=== PATIENT | male | born 1980 | race Caucasian/White ===

== ENCOUNTER 2020-09-09 00:38 | Inpatient (IN) | payer BC, MEDICAID, OTHER ==
[2020-09-09 02:07] LABS: Appearance,Urine Clear (Clear); Bilirubin,Urine Negative (Negative); Blood,Urine Negative (Negative); Color,Urine Colorless; Glucose,Urine (UA) Negative (Negative); Ketones,Urine Negative (Negative); Leukocyte Esterase,Urine Negative (Negative); Nitrite,Urine Negative (Negative); PH, Urine 5.5 (5.0-8.0); Protein,Urine Negative (Negative); Urobilinogen,Urine <2.0 mg/dL (<2.0)
[2020-09-09 02:10] LABS: Specific Gravity,Urine 1.002 (1.001-1.035)
[2020-09-09 02:11] LABS: Amphetamine Screen,Urine Detected (NotDetected); Barbiturate Screen,Urine Not Detected (NotDetected); Benzodiazepines Screen,Urine Not Detected (NotDetected); Cocaine Screen,Urine Not Detected (NotDetected); Methadone Screen, Urine Not Detected (NotDetected); Opiate Screen,Urine Not Detected (NotDetected); Oxycodone Screen, Urine Not Detected (NotDetected); Phencyclidine Screen,Urine Not Detected (NotDetected); Tricyclic Antidepressant,Urine Not Detected (NotDetected); Urn Cannabinoid Scrn Not Detected (NotDetected)
[2020-09-09] MEDS ORDERED: HALOPERIDOL LACTATE 5 MG/ML 1 ML VIAL IM PRN ×2 (04:43→11:36)
[2020-09-09] MEDS ORDERED: LORazepam 2 MG/ML INJ IM STA (04:44)
[2020-09-09] MEDS ORDERED: diphenhydrAMINE 50 MG/ML 1 ML VIAL IM STA (04:44)
[2020-09-09 05:18] LABS: Basophils # (A) 0.1 k/uL (0-0.2); Basophils % (A) 1 %; Eosinophils # (A) 0.2 k/uL (0-0.7); Eosinophils % (A) 2 %; HCT 51.6 % (39.0-53.0); HGB 18.2 gm/dL (13.0-17.5); Lymphocytes # (A) 4.8 k/uL (1.0-4.8); Lymphocytes % (A) 48 %; MCH 31.2 pg (25.0-35.0); MCHC 35.2 g/dL (31.0-37.0); MCV 88.6 fL (80.0-100.0); Mean Platelet Volume 6.5; Monocytes # (A) 0.5 k/uL (0-1.0); Monocytes % (A) 5 %; Neutrophils # (A) 4.1 k/uL (1.3-7.7); Neutrophils % (A) 41 %; Platelet Count 292 k/uL (150-450); RBC 5.82 m/uL (4.30-5.90); RDW 12.3 % (11.5-15.5); WBC 9.9 k/uL (3.8-10.6)
[2020-09-09 05:39] LABS: Albumin 5.4 g/dL (3.5-5.0); Calcium 9.2 mg/dL (8.4-10.2); Potassium 4.3 mmol/L (3.5-5.1); Total Bilirubin 1.3 mg/dL (0.2-1.3); Total Protein 8.2 g/dL (6.3-8.2)
--- NOTE | 2020-09-09 05:55 | ED ---
Psych HPI - General Chief Complaint: Psychiatric Symptoms Stated Complaint: Mental health Source: patient, police Mode of arrival: ambulatory - History of Present Illness Initial Comments: Patient is a 39-year-old male with past medical history of hypertension presents emergency Department with police. The patient reports that he was having a bad day. States that he did pull his mother off life support one year ago on this day. Also was told that his son who has muscular dystrophy is no longer res ponding to his home medications and that doctors have told him that his son will pass soon. Because the patient was having a bad day he states that he did drink alcohol. He called his ex-girlfriend for which she made comments that he was not doing well. She went over to the house to find that the patient was cleaning his guns. She got extremely concerned and therefore called police. They did arrive and requested take the patient in for evaluation. Patient does report a history of depression, currently does not take any medications. Patient denies to me that he is suicidal but depressed. Denies any drug use. No other alleviating, precipitating or modifying factors - Related Data Home Medications Medication Instructions Recorded Confirmed lisinopriL 10 mg PO DAILY 09/09/20 09/09/20 Allergies Allergy/AdvReac Type Severity Reaction Status Date / Time No Known Allergies Allergy Verified 09/09/20 00:49 Review of Systems ROS Statement: Those systems with pertinent positive or pertinent negative responses have been documented in the HPI. ROS Other: All systems not noted in ROS Statement are negative. Past Medical History Past Medical History: Hypertension History of Any Multi-Drug Resistant Organisms: None Reported Past Surgical History: No Surgical Hx Reported Past Psychological History: ADD/ADHD, Anxiety Smoking Status: Current every day smoker Past Alcohol Use History: Daily Past Drug Use History: None Reported General Exam Limitations: no limitations General appearance: alert, in no apparent distress Head exam: Present: atraumatic, normocephalic, normal inspection Eye exam: Present: normal appearance, PERRL, EOMI. Absent: scleral icterus, conjunctival injection, periorbital swelling ENT exam: Present: normal exam, mucous membranes moist Neck exam: Present: normal inspection. Absent: tenderness, meningismus, lymphadenopathy Respiratory exam: Present: normal lung sounds bilaterally. Absent: respiratory distress, wheezes, rales, rhonchi, stridor Cardiovascular Exam: Present: regular rate, normal rhythm, normal heart sounds. Absent: systolic murmur, diastolic murmur, rubs, gallop, clicks GI/Abdominal exam: Present: soft, normal bowel sounds. Absent: distended, tenderness, guarding, rebound, rigid Extremities exam: Present: normal inspection, full ROM, normal capillary refill. Absent: tenderness, pedal edema, joint swelling, calf tenderness Back exam: Present: normal inspection Neurological exam: Present: alert, oriented X3, CN II-XII intact Psychiatric exam: Present: depressed Skin exam: Present: warm, dry, intact, normal color. Absent: rash Course Vital Signs 09/09/20 00:46 Temperature 97.9 F Pulse Rate 111 H Respiratory 20 Rate Blood Pressure 169/79 O2 Sat by Pulse 99 Oximetry Medical Decision Making - Medical Decision Making Upon arrival patient is placed in room 15. Thorough history and physical exam was performed. Patient is evaluated by EPS at 3 AM when he is sober. The case was discussed with the psychiatrist to recommend admission for the patient. The patient is informed of this. He is currently awaiting outpatient placement in a psychiatric facility - Lab Data Result diagrams: 09/09/20 04:57 Lab Results 09/09/20 09/09/20 09/09/20 Range/Units 01:50 04:57 04:57 WBC 9.9 (3.8-10.6) k/uL RBC 5.82 (4.30-5.90) m/uL Hgb 18.2 H (13.0-17.5) gm/dL Hct 51.6 (39.0-53.0) % MCV 88.6 (80.0-100.0) fL MCH 31.2 (25.0-35.0) pg MCHC 35.2 (31.0-37.0) g/dL RDW 12.3 (11.5-15.5) % Plt Count 292 (150-450) k/uL MPV 6.5 Neutrophils % 41 % Lymphocytes % 48 % Monocytes % 5 % Eosinophils % 2 % Basophils % 1 % Neutrophils # 4.1 (1.3-7.7) k/uL Lymphocytes # 4.8 (1.0-4.8) k/uL Monocytes # 0.5 (0-1.0) k/uL Eosinophils # 0.2 (0-0.7) k/uL Basophils # 0.1 (0-0.2) k/uL Urine Color Colorless Urine Appearance Clear (Clear) Urine pH 5.5 (5.0-8.0) Ur Specific [place] 1.002 (1.001-1.035) Urine Protein Negative (Negative) Urine Glucose (UA) Negative (Negative) Urine Ketones Negative (Negative) Urine Blood Negative (Negative) Urine Nitrite Negative (Negative) Urine Bilirubin Negative (Negative) Urine Urobilinogen <2.0 (<2.0) mg/dL Ur Leukocyte Esterase Negative (Negative) Urine Opiates Screen Not Detected (NotDetected) Ur Oxycodone Screen Not Detected (NotDetected) Urine Methadone Screen Not Detected (NotDetected) Ur Propoxyphene Screen Not Detected (NotDetected) Ur Barbiturates Screen Not Detected (NotDetected) U Tricyclic Antidepress Not Detected (NotDetected) Ur Phencyclidine Scrn Not Detected (NotDetected) Ur Amphetamines Screen Detected H (NotDetected) U Methamphetamines Scrn Not Detected (NotDetected) U Benzodiazepines Scrn Not Detected (NotDetected) Urine Cocaine Screen Not Detected (NotDetected) U Marijuana (THC) Screen Not Detected (NotDetected) Coronavirus (PCR) Not Detected (Not Detectd) Disposition Referrals: Santo Garza MD [Primary Care Provider] - 1-2 days
[2020-09-09 08:14] VITALS: RESP 18
[2020-09-09] MEDS ORDERED: lisinopriL 10 MG TAB PO SCH (09:00)
[2020-09-09] MEDS ORDERED: MAG HYDROX/AL HYDROX/SIMETH 30 ML CUP PO PRN (10:16)
[2020-09-09] MEDS ORDERED: LORazepam 1 MG TAB PO PRN ×2 (10:16→12:14)
[2020-09-09] MEDS ORDERED: MAGNESIUM HYDROXIDE 2,400 MG/10 ML CUP PO PRN (10:16)
[2020-09-09] MEDS ORDERED: ACETAMINOPHEN TAB 325 MG TAB PO PRN (10:16)
[2020-09-09 11:02] VITALS: TEMP 98.7
[2020-09-09] MEDS ORDERED: haloperidoL 5 MG TAB PO PRN (11:36)
[2020-09-09] MEDS ORDERED: diphenhydrAMINE 25 MG CAP PO PRN (11:37)
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
[2020-09-09] MEDS: THIAMINE 100 MG TAB PO SCH (12:06)
[2020-09-09] MEDS: MULTIVITAMINS, THERA 1 EACH TAB PO SCH (12:06)
[2020-09-09] MEDS: SERTRALINE 50 MG TAB PO SCH (12:06)
[2020-09-09] MEDS: NICOTINE 14MG/24HR PATCH TRANSDERM SCH (12:07)
[2020-09-09] MEDS ORDERED: LORazepam 2 MG/ML INJ IM PRN (12:12)
--- NOTE | 2020-09-09 15:06 | P.HPIM ---
History of Present Illness H&P Date: 09/09/20 History of presenting illness: Patient is a 39-year-old male with a past medical history of ADHD, hypertension, anxiety, and depression. Patient currently admitted to inpatient mental health unit for concerns of increased depression and we have been consulted by primary psychiatric team for continued medical managment. Patient reports that he has been struggling with life stressors, depression, and anxiety and has been overly stressed out lately. He denies having any suicidal or homicidal ideations, visual/tactile/auditory hallucinations, or experiencing any racing thoughts or emotions. Patient reports that he takes lisinopril for his diastolic hypertension. He denies having any headache, lightheadedness, dizziness, chest pain, palpitations, shortness of breath, or dyspnea with exertion. Patient reports chewing tobacco and drinking approximately 2-3 beers 1-2 times per week. He denies any drug use. Review of systems: Pertinent positives and negatives as discussed in HPI, a complete review of systems was performed and all other systems are negative. Physical exam: General: non toxic, no distress, appears at stated age Derm: warm, dry Head: atraumatic, normocephalic, symmetric Eyes: EOMI, no lid lag, anicteric sclera Mouth: no lip lesion, mucus membranes moist Cardiovascular: S1S2 normal with regular rate and tachycardic rhythm at 102 bpm via apical heart, no murmur, gallop, or rub. Positive posterior tibial pulses bilaterally. Lungs: Respirations even, regular, and unlabored on room air. Lungs CTA bilaterally with no noted wheezes, rales, or rhonchi present. No accessory muscle usage. Abdominal: Soft, nontender to palpation, no guarding, no appreciable organomegaly Ext: No gross muscle atrophy, no edema, no contractures Neuro: CN II-XI grossly intact, no focal neuro deficits Psych: Alert, oriented, appropriate affect Assessment and Plan of Care: Hypertension -Monitor vital signs and Continue daily medication management with lisinopril 10 mg daily. ADHD -Recommend holding Adderall, patient reports being on Adderall for greater than 2 years and reports recent diagnosis of hypertension. Hypertension possibly caused from daily use of Adderall. Depression and anxiety -Treatment per primary psychiatric team. Thank you for allowing us to participate in the care of this pleasant patient. Do not hesitate to contact us with questions. We will follow along on an as- needed basis. Someone can be reached from the [facility] [place] hospitalist shayna loza all hours of the day at [phone] or via [employer]. Past Medical History Past Medical History: Hypertension History of Any Multi-Drug Resistant Organisms: None Reported Past Surgical History: No Surgical Hx Reported, Orthopedic Surgery Additional Past Surgical History / Comment(s): R ankle pin Past Anesthesia/Blood Transfusion Reactions: No Reported Reaction Past Psychological History: ADD/ADHD, Anxiety Smoking Status: Never smoker Past Alcohol Use History: Daily Past Drug Use History: None Reported Medications and Allergies Home Medications Medication Instructions Recorded Confirmed Type Dextroamphetamine/Amphetamine 30 mg PO BID 09/09/20 09/09/20 History [Adderall] Sildenafil Citrate 100 mg PO DAILY PRN 09/09/20 09/09/20 History lisinopriL 10 mg PO DAILY 09/09/20 09/09/20 History Allergies Allergy/AdvReac Type Severity Reaction Status Date / Time No Known Allergies Allergy Verified 09/09/20 08:58 Physical Exam Vitals: Vital Signs Temp Pulse Pulse Resp BP BP Pulse Ox 09/09/20 10:44 98.7 F 18 130/79 95 09/09/20 09:55 98.7 F 104 H 18 130/79 95 09/09/20 09:46 98.1 F 105 H 18 118/74 97 09/09/20 09:00 18 09/09/20 08:00 98.1 F 105 H 18 118/74 97 09/09/20 00:46 97.9 F 111 H 20 169/79 99 Intake and Output 09/08/20 09/09/20 09/09/20 22:59 06:59 14:59 Other: Weight 120.202 kg 109.514 kg Results CBC & Chem 7: 09/09/20 04:57 09/09/20 04:57 Labs: Abnormal Lab Results - Last 24 Hours (Table) 09/09/20 09/09/20 09/09/20 Range/Units 01:50 04:57 04:57 Hgb 18.2 H (13.0-17.5) gm/dL Carbon Dioxide 13 L (22-30) mmol/L Glucose 115 H (74-99) mg/dL Albumin 5.4 H (3.5-5.0) g/dL Ur Amphetamines Screen Detected H (NotDetected) Thrombosis Risk Factor Assmnt - Choose All That Apply Any of the Below Risk Factors Present?: Yes Each Factor Represents 1 point: Age 41-60 years Other Risk Factors: No Thrombosis Risk Factor Assessment Total Risk Factor Score: 1 Thrombosis Risk Factor Assessment Level: Low Risk
[2020-09-09] MEDS ORDERED: MELATONIN 5 MG TABLET PO SCH (21:00)
[2020-09-10] MEDS ORDERED: lisinopriL 10 MG TAB PO SCH (09:00)
[2020-09-10] MEDS: NICOTINE 14MG/24HR PATCH TRANSDERM SCH (09:05)
[2020-09-10] MEDS: THIAMINE 100 MG TAB PO SCH (09:05)
[2020-09-10] MEDS: MULTIVITAMINS, THERA 1 EACH TAB PO SCH (09:05)
[2020-09-10] MEDS: SERTRALINE 50 MG TAB PO SCH (09:05)
[2020-09-10 09:07] VITALS: BP 138/75; PULSE 98
[2020-09-10] MEDS ORDERED: LORazepam 1 MG TAB PO PRN (09:22)
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
[2020-09-10 16:24] LABS: Hemoglobin A1C 5.4 % (4.0-6.0)
[2020-09-10] MEDS ORDERED: MELATONIN 5 MG TABLET PO SCH (21:00)
== END 2020-09-10 13:16 | disposition home or self-care (01) | DRG 881 ==
LOC: EC 00:38 → 3MHU 09:37
PROVIDERS: ADMIT Psychiatry & Neurology Psychiatry; ATTEND Psychiatry & Neurology Psychiatry
DX: F32.9 Major depressive disorder, single episode, unspecified (principal); F10.10 Alcohol abuse, uncomplicated; F17.200 Nicotine dependence, unspecified, uncomplicated; F41.9 Anxiety disorder, unspecified; F90.9 Attention-deficit hyperactivity disorder, unspecified type; I10 Essential (primary) hypertension; Z79.899 Other long term (current) drug therapy; Z20.822 Contact with and (suspected) exposure to COVID-19
CPT/HCPCS: 36415; 80053; 80061; 80306; 81003; 82075; 83036; 84443; 85025; 87635; 99284